=== PATIENT | male | born 1945 | race Caucasian/White ===

== ENCOUNTER → 2017-04-05 | Outpatient (REF) | payer SELFPAY | LOC: LAB 06:30 | DX: Z47.1 Aftercare following joint replacement surgery (principal) ==

== ENCOUNTER → 2017-04-06 | Outpatient (REF) | LOC: LAB 07:00 | DX: T84.59XA Infection and inflammatory reaction due to other internal joint prosthesis, initial encounter (principal); M96.661 Fracture of femur following insertion of orthopedic implant, joint prosthesis, or bone plate, right leg; I50.9 Heart failure, unspecified; I47.2 Ventricular tachycardia ==

== ENCOUNTER → 2017-04-17 | Outpatient (REF) | LOC: LAB 06:25 | DX: Z01.89 Encounter for other specified special examinations (principal) ==

== ENCOUNTER → 2017-04-18 | Outpatient (REF) | LOC: LAB 06:05 | DX: Z47.1 Aftercare following joint replacement surgery (principal) ==